=== PATIENT | female | born 1940 | race Caucasian/White ===

== ENCOUNTER 2023-10-20 11:12 | Emergency (ER) | payer OTHER ==
[~2023-10-20] VITALS: Ht 157.5 cm; Wt 57.6 kg
[~2023-10-20 11:12] MED LIST: EVISTA60 MG PO; LEVOXYL50 MCG PO; ZOCOR40 MG PO
[2023-10-20] MEDS ORDERED: LIPITOR20 MG (11:19)
[2023-10-20 12:08] LABS: HEMATOCRIT 39.8 % (36.0-45.00); HEMOGLOBIN 13.7 g/dL (12.0-15.00); MEAN CORPUSCULAR HEMOGLOBIN 31.4 pg (27.00-32.0); MEAN CORPUSCULAR HGB CONC 34.5 g/dl (32.0-36.0); PLATELET COUNT 214 K/uL (150-450); RED BLOOD COUNT 4.38 M/uL (4.00-6.00); RED CELL DISTRIBUTION WIDTH 13.9 % (11.5-14.5)
== END 2023-10-20 13:26 | disposition home or self-care (01) ==
LOC: ER 11:12
PROVIDERS: General Practice
DX: R05.8 Other specified cough (principal); Z20.822 Contact with and (suspected) exposure to COVID-19

== ENCOUNTER 2024-02-17 14:27 | Outpatient (CLI) | payer OTHER ==
[~2024-02-17 14:27] MED LIST changes: +LIPITOR20 MG
== END 2024-02-17 14:38 | disposition home or self-care (01) ==
LOC: RAD 14:27
PROVIDERS: ATTEND Psychiatry & Neurology Clinical Neurophysiology
DX: G30.1 Alzheimer's disease with late onset (principal); F01.50 Vascular dementia, unspecified severity, without behavioral disturbance, psychotic disturbance, mood disturbance, and anxiety

== ENCOUNTER 2024-08-17 14:15 | Inpatient (IN) | payer OTHER ==
[~2024-08-17] VITALS: Ht 149.9 cm; Wt 54.4 kg
[2024-08-17] MEDS ORDERED: ARICEPT10 MG PO (15:00)
[2024-08-17] MEDS ORDERED: SYNTHROID100 MCG (15:00)
--- NOTE | 2024-08-17 15:04 | NUR ---
SE RECIBE PTE ALERTA Y ORIENTADA EN PERSONA ACOMPANADA DE FAMILIAR. FAMILIAR REFIERE QUE PTE PRESENTA DOLOR DE PECHO DESDE EL LUIS DE JANINE QUE IRRADIA HACIA LA ESPALDA BAJA. SE OBSERVA PTE CON CANALIZACION #20 EN MNAO LT CON .9 NSS. PTE ES UBICADA Y SE CONECTA A MONITOR CARDIACO.
--- NOTE | 2024-08-17 15:06 | NUR ---
SE ESTIMAN S/V Y SE REALIZA EKG EL CUAL SE PRESENTA A MD JULES.
[2024-08-17] MEDS ORDERED: 0.9 % SODIUM CHLORIDE 1,000 ML IV SCH (16:30)
--- NOTE | 2024-08-17 16:43 | NUR ---
SE ORIENTA PTE SOBRE TX MEDICO EL CUAL REFIERE ENTENDER.SE LE EXTRAEN MUESTRAS BAJO MEDIDAS ASEPTICAS,SE CANALIZA,CONECTADA A MONITOR CARDIACO Y SE REPITE EKG Y SE MUESTRA A DR REDDY.
[2024-08-17 17:08] LABS: HEMATOCRIT 43.6 % (36.0-45.00); HEMOGLOBIN 14.7 g/dL (12.0-15.00); MEAN CELL VOLUME 91.8 fL (80.00-100.00); MEAN CORPUSCULAR HGB CONC 33.8 g/dl (32.0-36.0); PLATELET COUNT 229 K/uL (150-450); RED BLOOD COUNT 4.75 M/uL (4.00-6.00); RED CELL DISTRIBUTION WIDTH 14.2 % (11.5-14.5)
[2024-08-17 17:34] LABS: ALBUMIN 3.5 gm/dL (3.4-5.0); BILIRUBIN TOTAL 0.64 mg/dL (0.3-1.2); CALCIUM 9.4 mg/dL (8.5-10.1); CREATININE SERUM 0.87 mg/dL (0.55-1.02); GFR 61.73; GLOBULINA 4.3 G/DL (2.4-3.5); POTASSIUM 5.89 mEq/L (3.5-5.1); TOTAL PROTEIN 7.8 gm/dL (6.4-8.2)
--- NOTE | 2024-08-17 18:14 | NUR ---
SE RECIBE A PTE EN AREA DE CRITICO, CONECTADA A MONITOR CARDIACO Y OXIMETRIA CONTINUA. CANALIZADA EN AMBAS ESTEVAN CON ANGIOS 20. TIENE 0.9NSS BAJANDO A 120ML/HR Y TRIDIL BAJANDO A 1ML/HR. SE MANTIENE PTE BAJO OBSERVACION Y ESPERANDO CONSULTA PARA ADMINISION
[2024-08-17] MEDS ORDERED: ASPIRIN 325 MG TABLET PO ONE (18:30)
[2024-08-17] MEDS ORDERED: NITROGLYCERIN IN 5 % DEXTROSE 50 MG/250 ML BOTTLE IV ONE (18:30)
[2024-08-17] MEDS ORDERED: TICAGRELOR 90 MG TABLET PO ONE (18:30)
[2024-08-17] MEDS ORDERED: NOREPINEPHRINE BITARTRATE 8 MG in DEXTROSE 5 % IN WATER 250 ML IV SCH (19:15)
[2024-08-17] MEDS ORDERED: AMIODARONE IN DEXTROSE,ISO-OSM 360 MG/200 ML IV.SOLN IV SCH (19:45)
[2024-08-17] MEDS ORDERED: ATORVASTATIN CALCIUM 40 MG TABLET PO SCH (20:22)
[2024-08-17] MEDS ORDERED: ONDANSETRON HCL 4 MG in 0.9 % SODIUM CHLORIDE 50 ML IV PRN (20:30)
[2024-08-17] MEDS ORDERED: ACETAMINOPHEN 500 MG GEL..CAP PO PRN (20:30)
[2024-08-17] MEDS ORDERED: SODIUM POLYSTYRENE SULFONATE 15 G/4 TSP TSP PO SCH (20:34)
[2024-08-17] MEDS ORDERED: FUROsemide 20 MG/2 ML VIAL IV SCH (21:00)
[2024-08-17 21:33] LABS: INR 1.04; PROTHROMBIN TIME 11.3 SECONDS (9.0-11.5)
[2024-08-17 21:49] LABS: URINE APPEARANCE Cloudy; URINE BILIRRUBIN Negative (NEGATIVE); URINE BLOOD Negative; URINE COLOR Dark Yellow; URINE GLUCOSE Negative (NEGATIVE); URINE KETONE Trace (NEGATIVE); URINE LEUKOCYTE Negative; URINE NITRATE Negative; URINE UROBILINOGEN 0.2 E.U./dl
[2024-08-17 21:52] LABS: URINE BACTERIA 37.7 uL (0.0-1933); URINE CAST 12.36 uL (0.0-1.40); URINE EPITHELIAL CELLS 20.7 uL (0.0-38.8); URINE WBC 5.7 uL (0.0-23.2)
--- NOTE | 2024-08-17 21:58 | NUR ---
PTE SE FUE EN ISABELLE TAQUICARDIA VENTRICULAR, LO CUAL DR REYNA MENCIONO COLOR AMIODARONA 150MG IV PUSH AL PTE, SE LE ADMINISTRA A PTE LO CUAL REACCIONA ADECUADDAMENTE. PTE TENIA TRIDIL BAJANDO A 1ML.HR Y LEVOPHED DE 8MG BAJANDO A 10ML.HR LO CUAL AMBAS SE DESCONTINUARON. SE COLOCA DRIP DE NEXTERONE A 33ML/HR. TERAPIA RESPITARIO COLOCA BIPAP, LUEGO ABG ZEINAB ORDENES MEDICAS DE DR REYNA.
[2024-08-17 22:15] LABS: URINE MUCUS SCANT; URINE PROTEIN 100 (NEGATIVE)
[2024-08-17 22:16] LABS: D DIMER 1.95 MG/L; PARTIAL THROMBOPLASTIN TIME 29.4 SECONDS (22.0-34.0)
[2024-08-17 23:14] LABS: ABG PH 7.428 (7.35-7.45); ABG pCO2 25.3 mmHg (35-45)
[2024-08-17 23:15] LABS: ABG PO2 101.5 mmHg (80-100); BICARBONATE 16.3 mmol/l (23-25); Tco2 17.1 mmol/l; allen test SATISFACTORY; o2 35 %; puncture site RADIAL RIGHT
[2024-08-17 23:18] LABS: SaO2 97.9 %
[2024-08-17 23:18] LABS: ABG PH 7.401 (7.35-7.45); ABG PO2 73.3 mmHg (80-100); ABG pCO2 24.8 mmHg (35-45); BASE EXCESS -7.7 mmol/l; BICARBONATE 15.1 mmol/l (23-25); Tco2 15.8 mmol/l
[2024-08-17 23:19] LABS: allen test SATISFACTORY; o2 80 %; puncture site RADIAL RIGHT
[2024-08-17 23:22] LABS: SaO2 94.2 %
[2024-08-18] VITALS (16 sets, daily range): BP systolic 79–123; BP diastolic 56–91; O2SAT 95–100
[2024-08-18] MEDS ORDERED: TICAGRELOR 90 MG TABLET PO SCH (05:00)
[2024-08-18] MEDS ORDERED: ENOXAPARIN SODIUM 40 MG/0.4 ML SYRINGE SUBCUTANEO SCH (05:00)
[2024-08-18 07:44] LABS: CALCIUM 8.6 mg/dL (8.5-10.1); CHOL HDL RATIO 2.7 (0-5.0); CREATININE SERUM 0.85 mg/dL (0.55-1.02); GFR 63.41; POTASSIUM 4.54 mEq/L (3.5-5.1); TSH 4.42 uIU/mL (0.358-3.74)
[2024-08-18] MEDS ORDERED: METOPROLOL SUCCINATE 25 MG TAB.SR.24H PO SCH (09:00)
[2024-08-18] MEDS ORDERED: ASPIRIN 81 MG TAB.CHEW PO SCH (09:00)
[2024-08-18] MEDS ORDERED: FAMOTIDINE/PF 20 MG in 0.9 % SODIUM CHLORIDE 8 ML IV PUSH SCH (09:00)
[2024-08-18] MEDS ORDERED: MIDODRINE HCL 5 MG TABLET PO SCH (09:00)
[2024-08-18] MEDS ORDERED: ENOXAPARIN SODIUM 60 MG/0.6 ML SYRINGE SUBCUTANEO SCH (09:00)
[2024-08-18 09:44] LABS: ABG PH 7.495 (7.35-7.45); ABG PO2 134.8 mmHg (80-100); ABG pCO2 26.4 mmHg (35-45); SaO2 99.3 %
[2024-08-18 09:45] LABS: BASE EXCESS -1.7 mmol/l; BICARBONATE 19.9 mmol/l (23-25); Tco2 20.7 mmol/l; allen test SATISFACTORY; o2 35 %; puncture site RADIAL RIGHT
[2024-08-18] MEDS ORDERED: 0.9 % SODIUM CHLORIDE 1,000 ML IV SCH (10:45)
[2024-08-18 12:23] LABS: HEMATOCRIT 42.8 % (36.0-45.00); HEMOGLOBIN 14.3 g/dL (12.0-15.00); MEAN CELL VOLUME 92.1 fL (80.00-100.00); MEAN CORPUSCULAR HEMOGLOBIN 30.8 pg (27.00-32.0); MEAN CORPUSCULAR HGB CONC 33.5 g/dl (32.0-36.0); PLATELET COUNT 235 K/uL (150-450); RED BLOOD COUNT 4.65 M/uL (4.00-6.00); RED CELL DISTRIBUTION WIDTH 14.1 % (11.5-14.5)
[2024-08-19] VITALS (15 sets, daily range): BP systolic 80–123; BP diastolic 57–87; O2SAT 99–100
[2024-08-19 08:34] LABS: ABG PH 7.463 (7.35-7.45); ABG pCO2 28.4 mmHg (35-45); BASE EXCESS -2.4 mmol/l; BICARBONATE 19.9 mmol/l (23-25); SaO2 97.4 %; Tco2 20.7 mmol/l
[2024-08-19] MEDS ORDERED: PANTOPRAZOLE SODIUM 40 MG TABLET.DR PO SCH (09:00)
[2024-08-19] MEDS ORDERED: ATORVASTATIN CALCIUM 40 MG TABLET PO SCH (09:06)
[2024-08-19] MEDS ORDERED: DEXTROSE 50 % IN WATER 0.5 G/ML DISP.SYRIN IV PRN (09:15)
[2024-08-19] MEDS ORDERED: INSULIN LISPRO 1,000 UNIT/10 ML UNITS SUBCUTANEO PRN (09:15)
[2024-08-19] MEDS ORDERED: NOREPINEPHRINE BITARTRATE 8 MG in DEXTROSE 5 % IN WATER 250 ML IV SCH (09:15)
[2024-08-19 10:13] LABS: allen test SATISFACTORY; o2 35 %; puncture site RADIAL LEFT
[2024-08-19] MEDS ORDERED: FUROsemide 20 MG/2 ML VIAL IV SCH (12:00)
[2024-08-19] MEDS ORDERED: MEROPENEM 500 MG/VIAL VIAL IV SCH (12:00)
[2024-08-19] MEDS ORDERED: MIDODRINE HCL 5 MG TABLET PO SCH (13:00)
[2024-08-19 14:16] LABS: HEMATOCRIT 40.9 % (36.0-45.00); MEAN CELL VOLUME 91.3 fL (80.00-100.00); MEAN CORPUSCULAR HEMOGLOBIN 31.2 pg (27.00-32.0); MEAN CORPUSCULAR HGB CONC 34.1 g/dl (32.0-36.0); PLATELET COUNT 211 K/uL (150-450); RED BLOOD COUNT 4.48 M/uL (4.00-6.00); RED CELL DISTRIBUTION WIDTH 14.3 % (11.5-14.5)
[2024-08-19 14:56] LABS: BILIRUBIN TOTAL 0.48 mg/dL (0.3-1.2); CALCIUM 8.5 mg/dL (8.5-10.1); CREATININE SERUM 0.66 mg/dL (0.55-1.02); GFR 84.91; GLOBULINA 3.1 G/DL (2.4-3.5); TOTAL PROTEIN 6.1 gm/dL (6.4-8.2)
[2024-08-19 15:11] LABS: POTASSIUM 2.78 mEq/L (3.5-5.1)
[2024-08-19 16:00] LABS: PH,URINE 5.5 (5.0-8.0); URINE APPEARANCE Clear; URINE BILIRRUBIN Negative (NEGATIVE); URINE BLOOD Large; URINE COLOR Yellow; URINE GLUCOSE Negative (NEGATIVE); URINE KETONE Trace (NEGATIVE); URINE LEUKOCYTE Negative; URINE NITRATE Negative; URINE PROTEIN Trace (NEGATIVE); URINE UROBILINOGEN 0.2 E.U./dl
[2024-08-19 16:01] LABS: URINE CAST 12.21 uL (0.0-1.40); URINE EPITHELIAL CELLS 29.2 uL (0.0-38.8); URINE RBC 556.7 uL (0.0-20.8); URINE WBC 26.5 uL (0.0-23.2)
[2024-08-19] MEDS ORDERED: POTASSIUM CHLORIDE IN WATER 40 MEQ/100 ML PIGGYBAG IV SCH (18:00)
[2024-08-20] VITALS (10 sets, daily range): BP systolic 97–117; BP diastolic 66–75; O2SAT 99–100
[2024-08-20 08:30] LABS: HEMATOCRIT 40.7 % (36.0-45.00); HEMOGLOBIN 13.9 g/dL (12.0-15.00); MEAN CELL VOLUME 92.4 fL (80.00-100.00); MEAN CORPUSCULAR HEMOGLOBIN 31.5 pg (27.00-32.0); MEAN CORPUSCULAR HGB CONC 34.1 g/dl (32.0-36.0); PLATELET COUNT 193 K/uL (150-450); RED CELL DISTRIBUTION WIDTH 14.3 % (11.5-14.5)
[2024-08-20 08:50] LABS: ALBUMIN 2.9 gm/dL (3.4-5.0); BILIRUBIN TOTAL 0.53 mg/dL (0.3-1.2); CALCIUM 8.6 mg/dL (8.5-10.1); CREATININE SERUM 0.82 mg/dL (0.55-1.02); GFR 66.1; GLOBULINA 3.3 G/DL (2.4-3.5); MAGNESIUM 2.3 mg/dL (1.8-2.4); PHOSPHOROUS 3.3 mg/dL (2.5-4.9); POTASSIUM 3.77 mEq/L (3.5-5.1); TOTAL PROTEIN 6.2 gm/dL (6.4-8.2)
[2024-08-20] MEDS ORDERED: PANTOPRAZOLE SODIUM 40 MG/VIAL VIAL IV PUSH SCH (09:00)
[2024-08-20] MEDS ORDERED: AMIODARONE HCL 200 MG TABLET PO SCH (09:00)
[2024-08-20 09:56] LABS: ABG PH 7.457 (7.35-7.45); ABG PO2 90.7 mmHg (80-100); ABG pCO2 33.6 mmHg (35-45); BASE EXCESS 0 mmol/l; BICARBONATE 23.2 mmol/l (23-25); SaO2 97.5 %; Tco2 24.2 mmol/l; allen test SATISFACTORY; o2 35 %; puncture site RADIAL RIGHT
[2024-08-20] MEDS ORDERED: VANCOMYCIN HCL 500 MG VIAL IV SCH (17:00)
[2024-08-20] MEDS ORDERED: VANCOMYCIN HCL 5 MG/ML REDILUIDO IV SCH (17:00)
[2024-08-21] VITALS (18 sets, daily range): BP systolic 87–118; BP diastolic 49–85; O2SAT 90–100
[2024-08-21 11:40] LABS: ABG PH 7.499 (7.35-7.45); ABG PO2 72.7 mmHg (80-100); ABG pCO2 34.8 mmHg (35-45); BASE EXCESS 3.6 mmol/l; BICARBONATE 26.5 mmol/l (23-25); Tco2 27.6 mmol/l; o2 50 %
[2024-08-21 11:41] LABS: allen test SATISFACTORY; puncture site RADIAL RIGHT
[2024-08-21] MEDS ORDERED: DIGOXIN 0.25 MG/ML AMPUL IV SCH (17:06)
[2024-08-21 18:16] LABS: PLEURAL FLUID COLOR XANTHOCROMIC
[2024-08-21 18:17] LABS: PLEURAL FLUID APPEARANCE CLOUDY
[2024-08-21 18:25] LABS: TP PLEURAL FLUID 3.4 g/dl
[2024-08-21 18:49] LABS: MONONUCLEAR 68 %; POLYMORPHONUCLEAR 32 %
[2024-08-22] VITALS (12 sets, daily range): BP systolic 86–126; BP diastolic 45–99; O2SAT 96–100
[2024-08-22] MEDS ORDERED: LEVOTHYROXINE SODIUM 50 MCG TABLET PO SCH (06:00)
[2024-08-22 06:55] LABS: ALBUMIN 2.5 gm/dL (3.4-5.0); BILIRUBIN TOTAL 0.9 mg/dL (0.3-1.2); CALCIUM 8.4 mg/dL (8.5-10.1); CREATININE SERUM 0.67 mg/dL (0.55-1.02); GFR 83.45; GLOBULINA 3.4 G/DL (2.4-3.5); POTASSIUM 3.21 mEq/L (3.5-5.1); TOTAL PROTEIN 5.9 gm/dL (6.4-8.2)
[2024-08-22 07:11] LABS: HEMATOCRIT 41.4 % (36.0-45.00); HEMOGLOBIN 14.2 g/dL (12.0-15.00); MEAN CELL VOLUME 92.1 fL (80.00-100.00); MEAN CORPUSCULAR HEMOGLOBIN 31.6 pg (27.00-32.0); MEAN CORPUSCULAR HGB CONC 34.4 g/dl (32.0-36.0); PLATELET COUNT 222 K/uL (150-450); RED CELL DISTRIBUTION WIDTH 14.3 % (11.5-14.5)
[2024-08-22 07:43] LABS: C-REACTIVE PROTEIN 20.5 MG/DL (0.00-0.29)
[2024-08-22] MEDS ORDERED: CLONAZEPAM 0.5 MG TABLET PO PRN (11:16)
[2024-08-22] MEDS ORDERED: DIPHENHYDRAMINE HCL 50 MG/ML VIAL 1ML IV NR (15:02)
[2024-08-22] MEDS ORDERED: FUROsemide 20 MG/2 ML VIAL IV SCH ×2 (16:21→17:00)
[2024-08-22] MEDS ORDERED: LORazepam 2 MG/ML VIAL IV PRN (16:45)
[2024-08-22] MEDS ORDERED: POTASSIUM CHLORIDE IN WATER 40 MEQ/100 ML PIGGYBAG IV SCH (17:00)
[2024-08-22] MEDS ORDERED: AMIODARONE HCL 200 MG TABLET PO SCH (17:00)
[2024-08-23] VITALS (15 sets, daily range): BP systolic 89–126; BP diastolic 52–70; O2SAT 96–100
[2024-08-23] MEDS ORDERED: AMPICILLIN SODIUM/SULBACTAM NA 3,000 MG VIAL IV SCH (20:00)
[2024-08-24] VITALS (24 sets, daily range): BP systolic 90–144; BP diastolic 51–98; O2SAT 89–100
[2024-08-24 07:01] LABS: PH,URINE 5.5 (5.0-8.0); URINE APPEARANCE Clear; URINE BILIRRUBIN Negative (NEGATIVE); URINE BLOOD Moderate; URINE COLOR Yellow; URINE GLUCOSE Negative (NEGATIVE); URINE LEUKOCYTE Trace; URINE NITRATE Negative; URINE PROTEIN 30 (NEGATIVE)
[2024-08-24 07:02] LABS: HEMATOCRIT 38.9 % (36.0-45.00); MEAN CELL VOLUME 92.5 fL (80.00-100.00); MEAN CORPUSCULAR HGB CONC 33.5 g/dl (32.0-36.0); PLATELET COUNT 234 K/uL (150-450); RED CELL DISTRIBUTION WIDTH 14.1 % (11.5-14.5)
[2024-08-24 07:05] LABS: URINE BACTERIA 21.4 uL (0.0-1933); URINE CAST 2.28 uL (0.0-1.40); URINE EPITHELIAL CELLS 26.4 uL (0.0-38.8); URINE RBC 185.5 uL (0.0-20.8); URINE WBC 27.2 uL (0.0-23.2)
[2024-08-24 07:28] LABS: URINE KETONE 40 (NEGATIVE)
[2024-08-24 07:29] LABS: ALBUMIN 2.3 gm/dL (3.4-5.0); BILIRUBIN TOTAL 0.86 mg/dL (0.3-1.2); CREATININE SERUM 0.56 mg/dL (0.55-1.02); GFR 102.64; GLOBULINA 3.5 G/DL (2.4-3.5); POTASSIUM 4.03 mEq/L (3.5-5.1); TOTAL PROTEIN 5.8 gm/dL (6.4-8.2)
[2024-08-24 07:31] LABS: URINE CRYSTALS FEW /HPF
[2024-08-24] MEDS ORDERED: MEROPENEM 500 MG/VIAL VIAL IV SCH (14:00)
[2024-08-24] MEDS ORDERED: DIATRIZOATE MEGLUMINE, SODIUM 30 ML BOTTLE PO NR (14:30)
[2024-08-24 15:54] LABS: ABG PH 7.388 (7.35-7.45); ABG PO2 72.9 mmHg (80-100); ABG pCO2 44.3 mmHg (35-45); BASE EXCESS 0.7 mmol/l; SaO2 94.3 %
[2024-08-24 15:55] LABS: BICARBONATE 26.1 mmol/l (23-25); Tco2 27.4 mmol/l; allen test SATISFACTORY; o2 50 %; puncture site RADIAL RIGHT
[2024-08-24] MEDS ORDERED: VANCOMYCIN HCL 5 MG/ML REDILUIDO IV SCH (17:00)
[2024-08-24] MEDS ORDERED: FUROsemide 20 MG/2 ML VIAL IV NR (18:00)
[2024-08-24] MEDS ORDERED: LORazepam 2 MG/ML VIAL IV PRN (18:45)
[2024-08-25] VITALS (19 sets, daily range): BP systolic 84–138; BP diastolic 54–86; O2SAT 95–100
[2024-08-25 09:00] LABS: HEMATOCRIT 37.8 % (36.0-45.00); HEMOGLOBIN 12.8 g/dL (12.0-15.00); MEAN CELL VOLUME 91.6 fL (80.00-100.00); MEAN CORPUSCULAR HEMOGLOBIN 31.1 pg (27.00-32.0); MEAN CORPUSCULAR HGB CONC 33.9 g/dl (32.0-36.0); PLATELET COUNT 269 K/uL (150-450); RED BLOOD COUNT 4.13 M/uL (4.00-6.00); RED CELL DISTRIBUTION WIDTH 13.7 % (11.5-14.5)
[2024-08-25] MEDS ORDERED: CHLORHEXIDINE GLUCONATE 15ML BRUSH KIT MM SCH (09:00)
[2024-08-25] MEDS ORDERED: POLYVINYL ALCOHOL 15 ML DROPS OP SCH (09:00)
[2024-08-25 09:11] LABS: CALCIUM IONIZED 4.9 mg/dL (4.5-5.6)
[2024-08-25 09:46] LABS: ALBUMIN 2.1 gm/dL (3.4-5.0); BILIRUBIN TOTAL 0.73 mg/dL (0.3-1.2); CALCIUM 8.6 mg/dL (8.5-10.1); CREATININE SERUM 0.5 mg/dL (0.55-1.02); GFR 116.98; GLOBULINA 3.5 G/DL (2.4-3.5); MAGNESIUM 2.3 mg/dL (1.8-2.4); PHOSPHOROUS 3.3 mg/dL (2.5-4.9); POTASSIUM 3.31 mEq/L (3.5-5.1); TOTAL PROTEIN 5.6 gm/dL (6.4-8.2)
[2024-08-25 12:39] LABS: ABG PO2 99.9 mmHg (80-100); ABG pCO2 39.5 mmHg (35-45); BASE EXCESS 4.9 mmol/l; BICARBONATE 28.7 mmol/l (23-25); SaO2 98.3 %; Tco2 29.9 mmol/l
[2024-08-25 12:40] LABS: allen test SATISFACTORY; o2 70 %; puncture site RADIAL LEFT
[2024-08-25] MEDS ORDERED: FentaNYL CITRATE/PF 50MCG/ML 2ML VIAL IJ ONE (12:45)
[2024-08-25] MEDS ORDERED: SODIUM CHLORIDE 0.45 % 1,000 ML IV SCH (14:15)
[2024-08-25] MEDS ORDERED: METOPROLOL TARTRATE 25 MG TABLET PO SCH (17:00)
[2024-08-25] MEDS ORDERED: POTASSIUM CHLORIDE IN WATER 100 ML IV SCH (17:00)
[2024-08-25] MEDS ORDERED: PANTOPRAZOLE SODIUM 40 MG/VIAL VIAL IV PUSH SCH (21:00)
[2024-08-26] VITALS (9 sets, daily range): BP systolic 89–135; BP diastolic 61–86; O2SAT 97–100
[2024-08-26] MEDS ORDERED: AMIODARONE HCL 200 MG TABLET PO SCH (09:00)
[2024-08-26 09:58] LABS: HEMATOCRIT 35.4 % (36.0-45.00); HEMOGLOBIN 11.8 g/dL (12.0-15.00); MEAN CORPUSCULAR HGB CONC 33.3 g/dl (32.0-36.0); PLATELET COUNT 242 K/uL (150-450); RED BLOOD COUNT 3.81 M/uL (4.00-6.00); RED CELL DISTRIBUTION WIDTH 13.5 % (11.5-14.5)
[2024-08-26 10:25] LABS: ALBUMIN 1.8 gm/dL (3.4-5.0); BILIRUBIN TOTAL 0.64 mg/dL (0.3-1.2); CALCIUM 7.9 mg/dL (8.5-10.1); CREATININE SERUM 0.44 mg/dL (0.55-1.02); GFR 135.58; GLOBULINA 3.7 G/DL (2.4-3.5); TOTAL PROTEIN 5.5 gm/dL (6.4-8.2)
[2024-08-26 10:47] LABS: POTASSIUM 2.86 mEq/L (3.5-5.1)
[2024-08-26] MEDS ORDERED: POTASSIUM CHLORIDE IN WATER 40 MEQ/100 ML PIGGYBAG IV SCH (13:00)
[2024-08-27] VITALS (7 sets, daily range): BP systolic 94–139; BP diastolic 50–79; O2SAT 92–100
[2024-08-27] MEDS ORDERED: PANTOPRAZOLE SODIUM 40 MG TABLET.DR PO NR (13:30)
[2024-08-27] MEDS ORDERED: POTASSIUM CHLORIDE IN WATER 40 MEQ/100 ML PIGGYBAG IV NR (13:30)
[2024-08-27 16:22] LABS: ABG PH 7.434 (7.35-7.45); ABG pCO2 40.8 mmHg (35-45); BASE EXCESS 2.3 mmol/l; BICARBONATE 26.8 mmol/l (23-25); SaO2 87.1 %
[2024-08-27 16:32] LABS: ABG PO2 50.6 mmHg (80-100); allen test SATISFACTORY; o2 21 %; puncture site RADIAL RIGHT
[2024-08-27 19:32] LABS: CALCIUM 8.6 mg/dL (8.5-10.1); CREATININE SERUM 0.41 mg/dL (0.55-1.02); GFR 147.09; POTASSIUM 5.01 mEq/L (3.5-5.1)
[2024-08-28] VITALS (10 sets, daily range): BP systolic 81–138; BP diastolic 44–76; O2SAT 86–100
[2024-08-28] MEDS ORDERED: PANTOPRAZOLE SODIUM 40 MG TABLET.DR PO SCH (09:00)
[2024-08-28] MEDS ORDERED: TRAMADOL HCL 50 MG TABLET PO SCH (21:57)
[2024-08-28] MEDS ORDERED: LORazepam 2 MG/ML VIAL IV PRN (22:30)
[2024-08-29] VITALS (9 sets, daily range): BP systolic 107–144; BP diastolic 73–87; O2SAT 80–98
[2024-08-29 10:28] LABS: ABG PH 7.432 (7.35-7.45); ABG PO2 78.7 mmHg (80-100); ABG pCO2 40.9 mmHg (35-45); BASE EXCESS 2.2 mmol/l; BICARBONATE 26.7 mmol/l (23-25); allen test SATISFACTORY; puncture site RADIAL RIGHT
[2024-08-29 10:29] LABS: o2 70 %
[2024-08-29] MEDS ORDERED: LORazepam 2 MG/ML VIAL IV SCH (21:00)
[2024-08-30] VITALS (9 sets, daily range): BP systolic 135–187; BP diastolic 61–84; O2SAT 88–98
[2024-08-30 10:18] LABS: ABG PH 7.311 (7.35-7.45); ABG PO2 72.8 mmHg (80-100); BASE EXCESS 1.4 mmol/l; BICARBONATE 29.2 mmol/l (23-25); SaO2 92.8 %; allen test SATISFACTORY; o2 70 %; puncture site RADIAL LEFT
[2024-08-30 10:19] LABS: ABG pCO2 59.2 mmHg (35-45)
[2024-08-31] VITALS: BP 63/85
[2024-08-31 01:30] VITALS: O2SAT 0
== END 2024-08-31 02:00 | disposition expired ==
LOC: ER 14:15 → ICU-2 20:25 → ICU 08-19 15:12 → SURH 08-27 20:20
PROVIDERS: General Practice; Internal Medicine; Internal Medicine Infectious Disease; Radiology Vascular & Interventional Radiology; ADMIT Internal Medicine; ATTEND Internal Medicine
PROC: BB24Y0Z Computerized Tomography (CT Scan) of Bilateral Lungs using Other Contrast, Unenhanced and Enhanced (ICD-10-PCS; principal; 2024-08-17)
PROC: B246ZZZ Ultrasonography of Right and Left Heart (ICD-10-PCS; 2024-08-18)
PROC: 5A09557 Assistance with Respiratory Ventilation, Greater than 96 Consecutive Hours, Continuous Positive Airway Pressure (ICD-10-PCS; 2024-08-19)
PROC: 02HV33Z Insertion of Infusion Device into Superior Vena Cava, Percutaneous Approach (ICD-10-PCS; 2024-08-20)
PROC: 0W993ZZ Drainage of Right Pleural Cavity, Percutaneous Approach (ICD-10-PCS; 2024-08-21)
PROC: 5A0935A Assistance with Respiratory Ventilation, Less than 24 Consecutive Hours, High Flow/Velocity Cannula (ICD-10-PCS; 2024-08-22)
PROC: BW21YZZ Computerized Tomography (CT Scan) of Abdomen and Pelvis using Other Contrast (ICD-10-PCS; 2024-08-24)
PROC: BB24Y0Z Computerized Tomography (CT Scan) of Bilateral Lungs using Other Contrast, Unenhanced and Enhanced (ICD-10-PCS; 2024-08-24)
PROC: B54MZZZ Ultrasonography of Right Upper Extremity Veins (ICD-10-PCS; 2024-08-25)
PROC: 0W9930Z Drainage of Right Pleural Cavity with Drainage Device, Percutaneous Approach (ICD-10-PCS; 2024-08-25)
DX: I21.4 Non-ST elevation (NSTEMI) myocardial infarction (principal); I50.23 Acute on chronic systolic (congestive) heart failure; J96.00 Acute respiratory failure, unspecified whether with hypoxia or hypercapnia; I47.20 Ventricular tachycardia, unspecified; J91.0 Malignant pleural effusion; I11.0 Hypertensive heart disease with heart failure; E03.8 Other specified hypothyroidism; E87.6 Hypokalemia; I24.9 Acute ischemic heart disease, unspecified; G30.9 Alzheimer's disease, unspecified; F02.80 Dementia in other diseases classified elsewhere, unspecified severity, without behavioral disturbance, psychotic disturbance, mood disturbance, and anxiety; Z66 Do not resuscitate; D72.828 Other elevated white blood cell count; C50.911 Malignant neoplasm of unspecified site of right female breast